=== PATIENT | male | born 1965 ===

== ENCOUNTER 2016-08-18 14:22 | Emergency (ER) | payer OTHER ==
[2016-08-18 14:45] VITALS: BP 122/80
--- NOTE | 2016-08-18 15:09 | UC ---
Back Pain HPI - HPI Summary HPI Summary: mid thoracic back pain x 1 day ? injury as he was going up and down the stairs no radiation of the pain, no weakness of lower ext. - History of Current Complaint Chief Complaint: UCBackPain Stated Complaint: BACK PAIN Time Seen by Provider: 08/18/16 14:28 Hx Obtained From: Patient Onset/Duration: Gradual Onset, Lasting Days - 1, Still Present Timing: Constant Severity Initially: Moderate Severity Currently: Severe Back Pain: Is Discrete @ - mid thoracic back Character: Aching, Spasmodic Aggravating: Movement, Lifting, Bending Alleviating: Nothing Associated Signs And Symptoms: Negative: Swelling, Redness, Bruising, Fever, Weakness, Numbness, Tingling, Abdominal Pain, Flank Pain, Bladder Incontinence, Bowel Incontinence, Weight Loss - Allergies/Home Medications Allergies/Adverse Reactions: Allergies Allergy/AdvReac Type Severity Reaction Status Date / Time No Known Allergies Allergy Verified 08/18/16 14:45 Home Medications: Home Medications Fqfzmzs-Xjdigdd-Cgyoac Salicyl [Bengay Ultra Strength 4-10-30 %] 1 cre EX ONCE PRN 08/18/16 [History Confirmed 08/18/16] Levothyroxine TAB* [Synthroid TAB*] 150 mcg PO DAILY 08/18/16 [History Confirmed 08/18/16] PMH/Surg Hx/FS Hx/Imm Hx Endocrine History Of: Reports: Thyroid Disease - Surgical History Surgical History: Yes Surgery Procedure, Year, and Place: Thyroidectomy ~2012 - Family History Known Family History: Negative: Diabetes - Social History Alcohol Use: Occasionally Substance Use Type: None Smoking Status (MU): Never Smoked Tobacco Review of Systems Constitutional: Negative Skin: Negative Eyes: Negative ENT: Negative Respiratory: Negative Musculoskeletal: Other: - back pain All Other Systems Reviewed And Are Negative: Yes Physical Exam Triage Information Reviewed: Yes Appearance: Well-Appearing, No Pain Distress, Well-Nourished Vital Signs: Initial Vital Signs Temp 99.7 F 08/18/16 14:35 Pulse 80 08/18/16 14:35 Resp 18 08/18/16 14:35 BP 122/80 08/18/16 14:35 Vital Signs Reviewed: Yes Eye Exam: Normal Eyes: Positive: Conjunctiva Clear ENT: Positive: Normal ENT inspection, Hearing grossly normal, Pharynx normal Neck: Positive: Supple, Nontender, No Lymphadenopathy Respiratory: Positive: Chest non-tender, Lungs clear, Normal breath sounds, No respiratory distress Cardiovascular: Positive: RRR, No Murmur, Pulses Normal Abdominal Exam: Normal Abdomen Description: Positive: Nontender, Soft. Negative: CVA Tenderness (R), CVA Tenderness (L) Bowel Sounds: Positive: Present Musculoskeletal: Positive: Other: - thoracic back : no swelling, no erythem, no tednerenss, decrease rom on flexion and rotation Back Pain Course/Dx - Differential Dx/Diagnosis Provider Diagnoses: thoracic back strain Discharge - Discharge Plan Condition: Stable Disposition: HOME Prescriptions: Cyclobenzaprine TAB* [Flexeril 10 MG TAB*] 10 mg PO BID #20 tab Naproxen 500 mg PO BID #20 tab Patient Education Materials: Thoracic Back Strain (ED) Additional Instructions: follow up with your pcp in one week
== END 2016-08-18 15:15 | disposition home or self-care (01) ==
LOC: UCCORT 14:22
DX: S29.012A Strain of muscle and tendon of back wall of thorax, initial encounter (principal); X58.XXXA Exposure to other specified factors, initial encounter; Y93.9 Activity, unspecified; Y92.9 Unspecified place or not applicable; E89.0 Postprocedural hypothyroidism
CPT/HCPCS: 99202; G0463